=== PATIENT | male | born 1940 | race Caucasian/White ===

== ENCOUNTER → 2020-10-28 | Outpatient (CLI) | payer OTHER ==
[~2020-10-28] MED LIST: ASPIRIN EC81 MG PO; COZAAR100 MG PO; DIFICID 200 MG200 MG PO; FLOMAX 0.4 MG0.4 MG PO; GINGER ROOT PO; HYDRALAZINE HCL25 MG PO; HYDROCHLOROTHIA25 MG PO; IMODIUM CAP 2 MG2 MG PO; KLONOPIN1 MG PO; LACTINEX TABLET1 EA PO; LOMOTIL 2.5-0.1 EACH PO; LOPRESSOR 50 MG50 MG PO; MOBIC7.5 MG PO; MULTIVITAMINS1 EAC1 PO; PROSCAR5 MG PO; PROTONIX40 MG PO; TRAZODONE HCL50 MG PO; TYLENOL EXTRA500 MG PO; VANCOMYCIN HCL125 MG PO; VANCOMYCIN HCL250 MG PO
== END ==
LOC: CT 09:30
DX: C34.2 Malignant neoplasm of middle lobe, bronchus or lung (principal); C78.02 Secondary malignant neoplasm of left lung; E27.9 Disorder of adrenal gland, unspecified; C77.1 Secondary and unspecified malignant neoplasm of intrathoracic lymph nodes; R91.8 Other nonspecific abnormal finding of lung field; K76.0 Fatty (change of) liver, not elsewhere classified
CPT/HCPCS: 71260; Q9967

== ENCOUNTER → 2020-11-04 | Outpatient (CLI) | payer OTHER | LOC: MRI 12:44 | DX: Z13.89 Encounter for screening for other disorder (principal); C34.12 Malignant neoplasm of upper lobe, left bronchus or lung; J96.12 Chronic respiratory failure with hypercapnia; R53.1 Weakness; C78.02 Secondary malignant neoplasm of left lung; E27.9 Disorder of adrenal gland, unspecified; C77.1 Secondary and unspecified malignant neoplasm of intrathoracic lymph nodes; Z74.09 Other reduced mobility; G31.9 Degenerative disease of nervous system, unspecified; R90.89 Other abnormal findings on diagnostic imaging of central nervous system | CPT/HCPCS: 70553; A9577 ==

== ENCOUNTER 2020-11-24 10:38 | Observation (INO) | payer OTHER ==
[~2020-11-24] VITALS: Ht 175.3 cm; Wt 78.0 kg
[~2020-11-24 10:38] MED LIST changes: -DIFICID 200 MG200 MG PO; -IMODIUM CAP 2 MG2 MG PO; -LACTINEX TABLET1 EA PO; -LOMOTIL 2.5-0.1 EACH PO; -VANCOMYCIN HCL125 MG PO; -VANCOMYCIN HCL250 MG PO
[2020-11-24 12:50] LABS: RED BLOOD COUNT 3.95 M/UL (4.20-5.50); WHITE BLOOD COUNT 5.7 K/UL (4.5-11.0)
[2020-11-24 13:13] LABS: BUN/CREATININE RATIO 18 (0-10)
[2020-11-24 17:27] LABS: ADENOVIRUS F 40/41 Not Detected (Negative); ASTROVIRUS Not Detected (Negative); CAMPYLOBACTER Not Detected (Negative); CLOSTRIDIUM DIFFICILE TOX A/B Not Detected (Negative); CRYPTOSPORIDIUM Not Detected (Negative); E.COLI 0157 Not Detected (Negative); ENTAMOEBA HISTOLYTICA Not Detected (Negative); ENTEROPATHOGENIC E.COLI (EPEC) Not Detected (Negative); ENTEROTOXIGENIC E.COLI (ETEC) Not Detected (Negative); GIARDIA LAMBLIA Not Detected (Negative); NOROVIRUS GI/GII Not Detected (Negative); PLESIOMONAS SHIGELLOIDES Not Detected (Negative); ROTOVIRUS A Not Detected (Negative); SALMONELLA Not Detected (Negative); SAPOVIRUS Not Detected (Negative); SHIG/ENTEROINVAS.ECOLI (EIEC) Not Detected (Negative); SHIGA-LIK TOX.PRO.E.COLI (STEC Not Detected (Negative); VIBRIO Not Detected (Negative); VIBRIO CHOLERAE Not Detected (Negative); YERSINIA ENTEROCOLITICA Not Detected (Negative)
[2020-11-24] MEDS ORDERED: LOMOTIL 2.5-0.1 EACH PO (19:37)
[2020-11-24] MEDS ORDERED: IMODIUM CAP 2 MG2 MG PO (19:56)
[2020-11-25 05:17] LABS: HEMOGLOBIN 10.1 gm/dl (14.0-17.5); RED BLOOD COUNT 3.59 M/UL (4.20-5.50); WHITE BLOOD COUNT 4.8 K/UL (4.5-11.0)
[2020-11-25 05:35] LABS: BUN/CREATININE RATIO 15 (0-10)
[2020-11-25] MEDS ORDERED: VANCOMYCIN HCL125 MG PO (10:35)
[2020-11-25 15:23] LABS: ENTEROAGGREGATIVE E.COLI (EAEC DETECTED (Negative)
== END 2020-11-25 13:06 | disposition home or self-care (01) ==
LOC: ER1 10:38 → MED SURG 4 18:09 → ZEROF 18:09 → MED SURG 4 22:55
PROVIDERS: Family Medicine; Physician Assistant; ADMIT Internal Medicine
DX: A04.72 Enterocolitis due to Clostridium difficile, not specified as recurrent (principal); C34.90 Malignant neoplasm of unspecified part of unspecified bronchus or lung; I10 Essential (primary) hypertension; N20.0 Calculus of kidney; N40.0 Benign prostatic hyperplasia without lower urinary tract symptoms; F17.210 Nicotine dependence, cigarettes, uncomplicated; Z82.49 Family history of ischemic heart disease and other diseases of the circulatory system; Z51.11 Encounter for antineoplastic chemotherapy; Z20.822 Contact with and (suspected) exposure to COVID-19
CPT/HCPCS: 36415; 80048; 80053; 81001; 82150; 83605; 83690; 85025; 87507; 90471; 96374; 96375; 99285; G0378; J1956; Q9967; U0002

== ENCOUNTER 2020-12-29 17:21 | Inpatient (IN) | payer OTHER ==
[~2020-12-29] VITALS: Ht 172.7 cm; Wt 76.7 kg
[~2020-12-29 17:21] MED LIST changes: +IMODIUM CAP 2 MG2 MG PO; +LOMOTIL 2.5-0.1 EACH PO; +VANCOMYCIN HCL125 MG PO
[2020-12-29 18:58] LABS: RED BLOOD COUNT 3.74 M/UL (4.20-5.50); WHITE BLOOD COUNT 4.8 K/UL (4.5-11.0)
[2020-12-29 19:09] LABS: BUN/CREATININE RATIO 26 (0-10)
[2020-12-30 04:00] LABS: HEMOGLOBIN 10.5 gm/dl (14.0-17.5); RED BLOOD COUNT 3.56 M/UL (4.20-5.50); WHITE BLOOD COUNT 4.4 K/UL (4.5-11.0)
[2020-12-30 04:27] LABS: BUN/CREATININE RATIO 19 (0-10)
[2020-12-31 04:00] LABS: HEMOGLOBIN 10.8 gm/dl (14.0-17.5); RED BLOOD COUNT 3.69 M/UL (4.20-5.50)
[2020-12-31 04:07] LABS: WHITE BLOOD COUNT 7.5 K/UL (4.5-11.0)
[2020-12-31 04:36] LABS: BUN/CREATININE RATIO 10 (0-10)
[2021-01-01 04:22] LABS: HEMOGLOBIN 10.2 gm/dl (14.0-17.5); RED BLOOD COUNT 3.56 M/UL (4.20-5.50); WHITE BLOOD COUNT 5.9 K/UL (4.5-11.0)
[2021-01-01 04:44] LABS: BUN/CREATININE RATIO 10 (0-10)
[2021-01-02 05:26] LABS: BUN/CREATININE RATIO 9 (0-10)
[2021-01-03] MEDS ORDERED: VANCOMYCIN HCL250 MG PO (10:18)
[2021-01-03] MEDS ORDERED: LACTINEX TABLET1 EA PO (10:46)
[2021-01-04 03:14] LABS: HEMOGLOBIN 10.6 gm/dl (14.0-17.5); RED BLOOD COUNT 3.63 M/UL (4.20-5.50); WHITE BLOOD COUNT 7.3 K/UL (4.5-11.0)
[2021-01-04 03:32] LABS: BUN/CREATININE RATIO 9 (0-10)
[2021-01-04] MEDS ORDERED: DIFICID 200 MG200 MG PO (10:52)
== END 2021-01-04 13:16 | disposition home or self-care (01) | DRG 372 ==
LOC: ER1 17:21 → CDU 21:53 → M/S 21:53
PROVIDERS: Internal Medicine; Physician Assistant; ADMIT Internal Medicine
DX: A04.72 Enterocolitis due to Clostridium difficile, not specified as recurrent (principal); K92.1 Melena; R00.0 Tachycardia, unspecified; I10 Essential (primary) hypertension; J44.9 Chronic obstructive pulmonary disease, unspecified; F17.210 Nicotine dependence, cigarettes, uncomplicated; Z85.118 Personal history of other malignant neoplasm of bronchus and lung; N40.0 Benign prostatic hyperplasia without lower urinary tract symptoms; E87.6 Hypokalemia; D64.9 Anemia, unspecified
CPT/HCPCS: 36415; 70450; 80048; 80053; 81001; 82272; 84132; 85025; 85610; 85730; 86850; 86900; 86901; 87324; 87449; 96365; 96368; 97161; 97166; 97530-GP-CQ; 97535; 99284; G0378; J1956; J2543; J3480; J7030; Q9967; U0002